=== PATIENT | female | born 1975 | race Hispanic/Latino ===

== ENCOUNTER 2021-03-20 15:14 | Outpatient (CLI) | payer BC | END 2021-03-20 15:15 | disposition home or self-care (01) | LOC: CSHMAMMO 15:14 | PROVIDERS: ATTEND Obstetrics & Gynecology | DX: Z12.31 Encounter for screening mammogram for malignant neoplasm of breast (principal) | CPT/HCPCS: 77063; 77067 ==

== ENCOUNTER 2022-04-08 11:17 | Outpatient (CLI) | payer BC | END 2022-04-08 11:18 | disposition home or self-care (01) | LOC: CSHMAMMO 11:17 | PROVIDERS: ATTEND Obstetrics & Gynecology | DX: Z12.31 Encounter for screening mammogram for malignant neoplasm of breast (principal) | CPT/HCPCS: 77063; 77067 ==

== ENCOUNTER 2024-04-18 11:16 | Outpatient (CLI) | payer BC | END 2024-04-18 11:17 | disposition home or self-care (01) | LOC: CSHMAMMO 11:16 | PROVIDERS: ATTEND Nurse Practitioner Family | DX: Z12.31 Encounter for screening mammogram for malignant neoplasm of breast (principal) | CPT/HCPCS: 77063; 77067 ==